=== PATIENT | male | born 1970 | race Caucasian/White ===

== ENCOUNTER → 2021-01-30 14:49 | Outpatient (BNVA) | payer OTHER, SELFPAY | PROVIDERS: PCP Hospitalist; Visit Provider Physician Assistant | DX: S01.01XA Laceration without foreign body of scalp, initial encounter (principal); W22.09XA Striking against other stationary object, initial encounter | CPT/HCPCS: 12004; 99204 ==

== ENCOUNTER → 2021-01-31 12:49 | Outpatient (BNVA) | payer OTHER, SELFPAY | PROVIDERS: PCP Hospitalist; Visit Provider Physician Assistant | DX: S01.01XA Laceration without foreign body of scalp, initial encounter (principal); X58.XXXA Exposure to other specified factors, initial encounter | CPT/HCPCS: 99213 ==

== ENCOUNTER → 2021-02-02 12:23 | Outpatient (BNVA) | payer OTHER, SELFPAY | PROVIDERS: PCP Hospitalist; Visit Provider Internal Medicine | DX: S01.01XA Laceration without foreign body of scalp, initial encounter (principal); X58.XXXA Exposure to other specified factors, initial encounter | CPT/HCPCS: 99213 ==

== ENCOUNTER → 2021-02-08 15:04 | Outpatient (BNVA) | payer OTHER, SELFPAY | PROVIDERS: PCP Hospitalist; Visit Provider Internal Medicine | DX: S01.01XA Laceration without foreign body of scalp, initial encounter (principal); X58.XXXA Exposure to other specified factors, initial encounter | CPT/HCPCS: 99212; 99213 ==

== ENCOUNTER → 2021-02-16 14:47 | Outpatient (BNVA) | payer OTHER, SELFPAY | PROVIDERS: PCP Hospitalist; Visit Provider Internal Medicine | DX: S01.01XA Laceration without foreign body of scalp, initial encounter (principal); X58.XXXA Exposure to other specified factors, initial encounter | CPT/HCPCS: 99213 ==

== ENCOUNTER 2025-08-03 16:09 | Inpatient (IN) | payer BC, SELFPAY ==
--- NOTE | ~2025-08-03 | XR_ITS ---
EXAMINATION: XR FOOT, RIGHT CLINICAL INFORMATION: right foot wound. osteo? COMPARISON: 04/25/2019. TECHNIQUE: AP, lateral, and oblique views of the right foot. FINDINGS: There is no fracture, dislocation, or suspicious bone lesion. There is normal alignment. There is mild hallux valgus with mild bunion formation involving the medial eminence of the first metatarsal head. There are hammertoe deformities present. There is a mild pes planus. There are tiny plantar and dorsal calcaneal spurs. There is no regional focal osteopenia, or permeative bony change to suggest radiographic changes of osteomyelitis. There is diffuse soft tissue swelling of the dorsal forefoot and midfoot, extending into the ankle region. There is no subcutaneous gas identified. There is no radiopaque foreign body. XR/XR foot RT 2V IMPRESSION: 1. Diffuse soft tissue swelling of the dorsal midfoot and forefoot, without subcutaneous gas identified. 2. There is no radiographic evidence of osteomyelitis. 3. There is mild hallux valgus and mild bunion formation involving the first metatarsal head. Electronically signed by: Alberto Mancilla MD 08/03/2025 04:52 PM EST
--- NOTE | ~2025-08-03 | CT_ITS ---
CLINICAL HISTORY: RT FOOT ULCER CT right foot with intravenous contrast Comparison: CR/SR - XR FOOT 1-2 VIEWS RIGHT - 08/03/25 16:41 EST Findings: Diffuse subcutaneous edema over the forefoot. Loculated subcutaneous abscess measuring 4.0 x 1.4 x 1.0 cm located above and between the 1st and 2nd metatarsal shafts. No soft tissue gas. No joint effusions. No evidence of osteomyelitis. No acute fracture or dislocation. IMPRESSION: 1. Loculated subcutaneous abscess measuring 4.0 x 1.4 x 1.0 cm between the 1st and 2nd metatarsal shafts with associated diffuse subcutaneous edema over the forefoot. 2. No evidence of osteomyelitis or soft tissue gas. This document has been electronically signed by: Zoya Rodas MD on 08/03/2025 22:08:27
[2025-08-03 16:21] VITALS: BP 161/76; PULSE 80; RESP 18; TEMP 36.8; O2SAT 98; BMI 29.3
--- NOTE | 2025-08-03 16:25 | ED_ITS ---
HPI - General Adult General Chief complaint: General Medical Stated complaint: Inflammation R foot Time Seen by Provider: 08/03/25 18:17 History of Present Illness ED Provider: danica HPI narrative: 55 M nelda foot infection x 1 week worsening Saw Derm 3 mo ago for bilateral dorsal foot rash and axilla rash was told that he needed to provide more aeration changes laundry detergent so perhaps they thought it was some inflammatory condition or dermatitis. The patient was not prescribed any medications he has been itching the area and in the right foot started getting red about a week ago worsening with some drainage developing. Denies subjective fever. Related Data Home Medications ?Medication ?Instructions ?Recorded ?Confirmed multivitamin 1 tab PO DAILY 08/03/2502/20 Allergies Allergy/AdvReac Type Severity Reaction Status Date / Time amoxicillin (AMOXICILLIN) Allergy Mild RASH Verified 08/03/25 16:24 [facility] Social History Social History Household Members: None Housing: Apartment Do you presently have visiting nurse or other home services: No Alcohol intake: current Alcohol intake frequency: a few times a week Patient Tobacco Use Status: Never used Tobacco Smoked in Last 30 Days: No Use of substances other than those prescribed or required for medical reasons: No Currently Displaying Signs/Symptoms of Drug Intoxication Withdrawal: No Have you been hit, kicked, punched, or otherwise hurt by someone within the past year? If so, by whom?: No Do you feel safe in your current relationship?: No Current Relationship Is there a partner from a previous relationship who is making you feel unsafe now?: No Are you made to feel afraid or neglected: No Advance Directives: No Advance Directives Information Provided: No Do you have a plan to hurt others: No Plan Recently lost weight without trying: No How much weight loss: Not applicable Eating poorly because of decreased appetite: No Nutrition screen score: 0 Nutrition Risks: No Nutritional Risk Poor oral hygiene: No Physical Exam ED Exam Exam: EXAM: Gen: Alert, awake, well appearing, well hydrated. Head: Atraumatic Eyes: Anicteric, Normal conjunctiva. ENT: Moist mucosa, no pallor. ? Neck: Supple. Skin: Scaling of the left foot dorsum looks like it is a healing inflammatory or dermatitis Right lower extremity significant swelling erythema tenderness centrally necrotic appearing ulceration or abscess in the dorsum of the foot. No obvious fluctuance. There is diffuse warmth and erythema spreading up including the ankle and about to the mid pretibial region no calf tenderness. Well-perfused distal feed Respiratory: Breathing comfortably, No distress.Clear to auscultation bilaterally, symmetric chest expansion, No wheeze, rales, ronchi. Cardiovascular: Regular rate and rhythm. No murmurs or rub. Well perfused periphery, warm extremities. No edema. ? Abdominal: No focal tenderness. Soft, no objective distension. No palpable masses or obvious organomegaly. ?No guarding, no rebound tenderness or other peritoneal findings. : No flank tenderness. Neuro: Alert. Gross movement of all extremities intact. ? Psych: Calm. Cooperative. MSK: No grossly visible deformity. Vital signs: See flowsheet Vital Signs: Vital Signs - 24 hr 08/03/25 16:21 08/03/25 19:20 08/03/25 19:25 Temperature 98.2 F 99.3 F 99.1 F Pulse Rate 80 75 66 Respiratory Rate 18 16 16 Blood Pressure 161/76 H 137/84 137/84 Pulse Oximetry 98 95 97 Oxygen Delivery Method Room Air Room Air Room Air BMI result Body Mass Index 29.3 Course Course Course Narrative: RME: 55 yold male presents to the ED For right foot redness and open draining wound with redness. labs an dxray ordered Medications Administered Generic Name Dose Route Start Last Admin Trade Name Freq PRN Reason Stop Dose Admin Benzocaine 1 lozenge 08/04/25 00:17 08/04/25 00:24 Throat Lozenge, Medicated Lozenge MUCOUS MEM 1 lozenge Q2H PRN Administration Sore Throat Enoxaparin Sodium 40 mg 08/03/25 21:00 08/03/25 21:35 Enoxaparin Sodium 40 Mg/0.4 Ml Syringe SUBCUT Not Given Q24H EDGAR Melatonin 6 mg 08/03/25 20:38 08/04/25 00:24 Melatonin 3 Mg Tablet PO 6 mg BEDTIME PRN Administration Insomnia Sodium Chloride 3 ml 08/04/25 00:00 08/03/25 23:03 0.9 % Sodium Chloride Flush 3 Ml Syringe IVFLUSH Not Given QSHIFT EDGAR Discontinued Medications Generic Name Dose Route Start Last Admin Trade Name Freq PRN Reason Stop Dose Admin Doxycycline Monohydrate 100 mg 08/03/25 19:21 08/03/25 21:35 Doxycycline Monohydrate 100 Mg Capsule PO 08/03/25 19:22 100 mg ONCE ONE Administration Ceftriaxone Sodium 2 gm/ 50 mls @ 100 mls/hr 08/03/25 19:21 08/03/25 20:02 Sodium Chloride IV 08/03/25 19:50 Infused ONCE ONE Infusion Vancomycin HCl 2,000 mg in 500 mls @ 250 mls/hr 08/03/25 21:15 08/04/25 00:21 Vancomycin/Ns IV 08/03/25 23:14 Infused ONCE ONE Infusion Iohexol 100 ml 08/03/25 21:04 08/03/25 21:08 Iohexol 350 Mg/Ml 100 Ml Infus..Btl IV 08/03/25 21:05 85 ml ONCE ONE Administration Medical Decision Making Medical Decision Making MDM Narrative: Medical Decision Making: [age] male with right dorsal foot infection clearly cellulitic could be deeper space abscess. No gas on x-ray. No leukocytosis but his inflammatory markers are elevated. 99.3 oral temperature. No hemodynamic instability. Blood cultures drawn at triage patient does not meet SIRS/sepsis criteria. He is healthy denies any immunocompromise/diabetes Although the patient does not meet sepsis criteria I feel like this is skin infection that is not going to be likely to respond well to oral antibiotics. Foot shows what is likely ulceration with a small area of dark possibly necrotic skin. There was some expressible drainage but no fluctuance deep. Covered with antibiotics and admit to the hospital given the risk of failure of outpatient antibiotics severity of the appearance of the infection. May need foot MR to evaluate for deep space foot infection not available emergently in the ED. Preliminary Favored Differential Diagnosis: Foot cellulitis, skin ulceration, deep space foot infection, lymphangitis among additional considered etiologies Testing Interpreted Independently: ?See below for details Radiology or Lab testing Results Reviewed: ?See below for details Consults: ?See below for details Independent Historians/External Chart Reviews: ?See below for details Social Determinants of Health Impacting MDM/Planning: ?See below for details Consult Healthcare Provider Management of the patient was discussed with: Hospitalist Lab Data MDM Lab Attestation statement: I reviewed the patient's lab results. 08/03/25 18:20 08/03/25 18:20 Labs: Lab Results 08/03/25 08/03/25 Range/Units 18:19 18:20 WBC 10.6 (4.8-10.8) X10*3/uL RBC 4.76 (4.60-5.80) X10*6/uL Hgb 15.1 (14.0-18.0) g/dl Hct 44.0 (42.0-52.0) % MCV 92.4 (80.0-98.0) fL MCH 31.7 (27.0-33.0) pg MCHC 34.3 (31.0-36.0) g/dl RDW 12.3 (11.0-16.0) % Plt Count 262 (160-400) X10*3/uL MPV 8.8 L (9.4-12.4) fL Immature Gran % (Auto) 0.4 (0.0-0.4) % Neut % (Auto) 74.1 H (45-73) % Lymph % (Auto) 12.7 L (20-40) % Love % (Auto) 10.4 (2-11) % Eos % (Auto) 2.0 (0-4) % Baso % (Auto) 0.4 (0-2) % Lymph # (Auto) 1.3 (1.2-4.9) X10*3/uL Love # (Auto) 1.1 (0.1-1.2) X10*3/uL Eos # (Auto) 0.2 (0.0-0.4) X10*3/uL Baso # (Auto) 0.0 (0.0-0.2) X10*3/uL Abs Immat Gran (auto) 0.04 H (0.00-0.03) X10*3/uL Absolute Neuts (auto) 7.9 (2.0-8.3) x10*3/uL Absolute Nucleated RBC 0.000 (0.0-0.012) X10*3/uL Nucleated RBC % (auto) 0.0 (0.0-0.2) /100WBC ESR 23 H (0-15) MM/HR Sodium 141 (135-145) mmol/L Potassium 4.0 (3.3-5.1) mmol/L Chloride 102 (96-108) mmol/L Carbon Dioxide 29 (22-29) mmol/L Anion Gap 14 (12-20) BUN 16 (9-16) mg/dL Creatinine 0.88 (0.5-1.4) mg/dL Estim Creat Clear Calc 111.7 Estimated GFR > 60 Random Glucose 102 (60-115) mg/dL Lactic Acid 0.7 (0.5-2.0) mmol/L Calcium 9.3 (8.4-10.2) mg/dL Total Bilirubin 0.8 (0.0-1.0) mg/dL AST 23 (5-37) U/L ALT 31 (0-40) U/L Alkaline Phosphatase 79 (39-117) U/L C-Reactive Protein 10.77 H (< or = 0.50) mg/dL Total Protein 7.7 (6.5-8.0) g/dL Albumin 4.7 (3.5-5.0) g/dL Discharge Plan Discharge Clinical Impression: Cellulitis Qualifiers: Site of cellulitis: extremity Site of cellulitis of extremity: lower extremity Laterality: right Qualified Code(s): L03.115 - Cellulitis of right lower limb Patient Disposition: Admitted As Inpatient Interventions: Admission Worksheet (ED) Last Done: 08/03/25 23:22 Discharge Date/Time: 08/03/25 23:57
[2025-08-03 18:27] LABS: MANUAL DIFF FLAG NO
[2025-08-03 18:37] LABS: Hematocrit 44.0 % (42.0-52.0); Hemoglobin 15.1 g/dl (14.0-18.0); Imm Gran Abs Auto 0.04 X10*3/uL (0.00-0.03); Imm Gran Pct Auto 0.4 % (0.0-0.4); Lymphocytes Absolute Auto 1.3 X10*3/uL (1.2-4.9); Mean Corpuscular HGB Conc 34.3 g/dl (31.0-36.0); Mean Corpuscular Hemoglobin 31.7 pg (27.0-33.0); Mean Corpuscular Volume 92.4 fL (80.0-98.0); NRBC Abs Auto 0.000 X10*3/uL (0.0-0.012); NRBC Pct Auto 0.0 /100WBC (0.0-0.2); Platelet Count 262 X10*3/uL (160-400); Red Blood Count 4.76 X10*6/uL (4.60-5.80); White Blood Count 10.6 X10*3/uL (4.8-10.8)
[2025-08-03 18:44] LABS: Alanine Aminotransferase 31 U/L (0-40); Albumin Level 4.7 g/dL (3.5-5.0); Alkaline Phosphatase 79 U/L (39-117); Anion Gap 14 (12-20); Aspartate Amino Transferase 23 U/L (5-37); Blood Urea Nitrogen 16 mg/dL (9-16); Calcium 9.3 mg/dL (8.4-10.2); Carbon Dioxide 29 mmol/L (22-29); Chloride 102 mmol/L (96-108); Creatinine Clr Calc Pharmacy 111.7; Estimated Glomerular Filt Rate > 60; Potassium 4.0 mmol/L (3.3-5.1); Sodium 141 mmol/L (135-145); Total Protein 7.7 g/dL (6.5-8.0)
--- OUTSIDE RECORDS SUMMARY | 2025-08-03 19:15 | XMS_ITS | Patient Health Record ---
Author Organization [facility] Address [address] [place] [address] Care Team Providers Care Monitoring Manager Name Role Phone Kiley Hernández Primary Care Provider Albert Mireles Unavailable [phone] Allergies Allergen (clinical drug ingredient) Drug/Non Drug Allergy documented on EMR Reaction Allergy Type Onset Date Status aspirin Aspirin nausea Drug Allergy Active amoxicillin Amoxicillin rash Drug Allergy Act phuong Penicillin rash Drug Allergy Active Reason For Referral No Information Immunizations Vaccine Route Administration Date Status Comme nts COVID-19 Moderna Vaccine Unknown 09/29/2021 Administered unsure dates Social History Tobacco Use: Social History Observation Description Date Details (start date - stop date) Never Smoker NA - NA Tobacco Use/Smoking Question Answer Notes Are you a: nonsmoker Additional Findings: Tobacco Non-User Current no n-smoker Alcohol Screen Question Answer Notes Did you have a drink contain ing alcohol in the past year? Yes How often did you have a dri nk containing alcohol in the past year? 2 to 3 times a week (3 points) Points 3 Interpretation Negative Tobacco use other than smoking: Question Answer Notes Are you an other tobacco user? No Plan Of Treatment Pending Test Test Name Order Date X ray : Foot, right 3V 10/25/2022 Insurance Providers Payer Name Payer Address Payer Phone Subscriber Number Group Number Insured Name Patient Relationship to Insured Coverage Start Date Coverage End Date [facility] All Others [address] [place] [address] [phone] [id number] Steven Pham Self - patient is the insured Medical (General) History Medical History History ICD Code Chicken pox Bone implants/screws Surgical History Surgery Date(Month/Year) surgery right knee - ACL repair 2019 colonoscopy 2021
--- OUTSIDE RECORDS SUMMARY | 2025-08-03 19:16 | XMS_ITS | Patient Health Record ---
Author Organization [facility] Address [address] [place] [address] Care Team Providers Care Public Relations Professional Name Role Phone Michael Joaquin Primary Care Provider Unavailabl e Allergies Allergen (clinical drug ingredient) Drug/Non Drug Allergy documented on EMR Reaction Allergy Type Onset Date Status Amoxil rash Drug Allergy Active aspirin Aspirin vomitting Drug Allergy Active Reason For Referral No Information Problems Problem Type SNOMED Code ICD Code Onset Dates Problem Status W/U Status Risk Notes Problem Cavus deformity (8843859) Cavus deformity (Q66.70) Active confirmed Plan Of Treatment No Information Insurance Providers Payer Name Payer Address Payer Phone Subscriber Number Group Number Insured Name Patient Relationship to Insured Coverage Start Date Coverage End Date [facility] [address] [place] [phone] [id number] Steven Pham Self - patient is the insured Medical (General) History Medical History History ICD Code Overweight (BMI 25.0-29.9) Surgical History Surgery Date(Month/Year) Right meniscus surgery
[2025-08-03 19:20] VITALS: BP 137/84; PULSE 75; RESP 16; TEMP 37.4; O2SAT 95
[2025-08-03 19:25] VITALS: BP 137/84; PULSE 66; RESP 16; TEMP 37.3; O2SAT 97
--- NOTE | 2025-08-03 20:40 | PM.IMHP ---
History of Present Illness Date of Service: 08/03/25 Chief Complaint: Foot infection 55-year-old male with significant past medical history presented to the hospital with a chief complaint of right foot infection for about a week. Patient mentioned that he has been having redness and erythema on the right foot which has been gradually worsening. Noted to have dark granulation tissue. And seen the physician as outpatient and was started on doxycycline which he took it for 1 day but as the redness has been progressing, presented to the ER for further evaluation. Patient denies any fevers or chills. Denies any nausea vomiting or diarrhea. Denies any insect bites. Review of all other systems is negative except mentioned above ER course: Per ER team, patient noted to have right foot open ulcer with dark granulation tissue and surrounding erythema. X-ray showed evidence of gas. Given antibiotics. PMFSH Social History Alcohol intake: current Alcohol intake frequency: a few times a week Smoked in Last 30 Days: No Use of substances other than those prescribed or required for medical reasons: No Advance Directives: No Advance Directives Information Provided: No Do you have a plan to hurt others: No Plan Meds Allergies Allergy/AdvReac Type Severity Reaction Status Date / Time amoxicillin (AMOXICILLIN) Allergy Mild RASH Verified 08/03/25 16:24 Active Medications: Current Medications Vancomycin HCl 1,000 mg/ (Sodium Chloride) 270 mls @ 270 mls/hr IV ONCE ONE Stop: 08/03/25 21:36 Ceftriaxone Sodium 1 gm/ (Sodium Chloride) 50 mls @ 100 mls/hr IV Q24H [facility] Pharmacy Consult (Consult Rx Vancomycin Dosing) 1 each MISCELLANE DAILY PRN PRN Reason: Consult order Physical Exam Vital Signs and Narrative: Vital Signs: Last Vital Signs Temp 99.1 F 08/03/25 19:25 Pulse 66 08/03/25 19:25 Resp 16 08/03/25 19:25 BP 137/84 08/03/25 19:25 Pulse Ox 97 08/03/25 19:25 O2 Del Method Room Air 08/03/25 19:25 BMI result Body Mass Index 29.3 Gen: Appears be in no acute distress HEENT: NCAT, Moist mucosa. Pulmonary: Vesicular breath sounds, fair air entry CVS: Normal S1-S2 Abdomen: BS+, Soft, Nontender Extremities: Warm well perfused Neuro: Alert and awake. Skin: Right foot dorsum is erythematous with central ulcer, has dark granulation tissue, no drainage. Results Labs 08/03/25 18:20 08/03/25 18:20 Labs: Laboratory Results - last 24 hr 08/03/25 08/03/25 18:19 18:20 MCV 92.4 MCH 31.7 MCHC 34.3 RDW 12.3 Plt Count 262 MPV 8.8 L Immature Gran % (Auto) 0.4 Neut % (Auto) 74.1 H Lymph % (Auto) 12.7 L [place] % (Auto) 10.4 Eos % (Auto) 2.0 Baso % (Auto) 0.4 Lymph # (Auto) 1.3 [place] # (Auto) 1.1 Eos # (Auto) 0.2 Baso # (Auto) 0.0 Abs Immat Gran (auto) 0.04 H Absolute Neuts (auto) 7.9 Absolute Nucleated RBC 0.000 Nucleated RBC % (auto) 0.0 ESR 23 H Anion Gap 14 Estim Creat Clear Calc 111.7 Estimated GFR > 60 Random Glucose 102 Lactic Acid 0.7 Calcium 9.3 Total Bilirubin 0.8 AST 23 ALT 31 Alkaline Phosphatase 79 C-Reactive Protein 10.77 H Total Protein 7.7 Albumin 4.7 Imaging Radiologist's Impressions: Impressions Foot X-Ray 08/03/25 16:25 IMPRESSION: 1. Diffuse soft tissue swelling of the dorsal midfoot and forefoot, without subcutaneous gas identified. 2. There is no radiographic evidence of osteomyelitis. 3. There is mild hallux valgus and mild bunion formation involving the first metatarsal head. Electronically signed by: Alberto Mancilla MD 08/03/2025 04:52 PM [facility] Assessment and Plan (1) Cellulitis: Qualifiers: Site of cellulitis: extremity Site of cellulitis of extremity: lower extremity Laterality: right Qualified Code(s): L03.115 - Cellulitis of right lower limb Status: Acute Plan 55-year-old male with significant past medical history presented to the hospital with a chief complaint of right foot infection for about a week. Noted to have right foot dorsum cellulitis. Right foot cellulitis: Continue vancomycin and ceftriaxone ID consult Will obtain CT of the foot DVT prophylaxis: Lovenox Code status: Full code Quality Stroke Does the patient have a stroke diagnosis?: No VTE Prior VTE?: No VTE Risk Level:: Medical - moderate - high VTE Device Contraindication: Treatment Not Indicated VTE Drug Contraindication: N/A - Med Ordered
[2025-08-03] MEDS: iohexoL 350 MG/ML 100 ML INFUS..BTL IV (21:08)
[2025-08-03] MEDS: vancomycin/NS 2,000 MG/500 ML PLAST..BAG 250 MG IV (21:34)
--- NOTE | 2025-08-03 21:50 | PHA.MEDREC ---
Addendum entered by Ermias Aden, PharmAshley 08/03/25 21:55: MED REC CHECKED BY [facility] Original Note: Pharmacy Consult ? Medication Reconciliation Pharmacy has completed the medication reconciliation. patient states he only takes Multivitamin daily.
[2025-08-03 23:58] VITALS: BMI 28.3
[2025-08-04 00:17] VITALS: BP 136/81; PULSE 67; RESP 18; TEMP 36.5; O2SAT 97
[2025-08-04] MEDS: Throat Lozenge, Medicated LOZENGE 1 LOZENGE MUCOUS MEM (00:24)
--- NOTE | 2025-08-04 00:41 | PC.NURSE ---
Per pt's request - pt's wallet is locked in security in ED, please return when discharged.
[2025-08-04 03:57] VITALS: BP 128/75; PULSE 65; RESP 18; TEMP 36.8; O2SAT 94
[2025-08-04 06:17] LABS: MANUAL DIFF FLAG NO
[2025-08-04 06:36] LABS: Anion Gap 12 (12-20); Blood Urea Nitrogen 14 mg/dL (9-16); Calcium 8.6 mg/dL (8.4-10.2); Carbon Dioxide 26 mmol/L (22-29); Chloride 106 mmol/L (96-108); Creatinine Clr Calc Pharmacy 115.3; Estimated Glomerular Filt Rate > 60; Potassium 4.1 mmol/L (3.3-5.1); Sodium 140 mmol/L (135-145)
[2025-08-04 06:42] LABS: Hematocrit 41.7 % (42.0-52.0); Hemoglobin 14.0 g/dl (14.0-18.0); Imm Gran Abs Auto 0.06 X10*3/uL (0.00-0.03); Imm Gran Pct Auto 0.8 % (0.0-0.4); Lymphocytes Absolute Auto 1.0 X10*3/uL (1.2-4.9); Mean Corpuscular HGB Conc 33.6 g/dl (31.0-36.0); Mean Corpuscular Hemoglobin 31.2 pg (27.0-33.0); Mean Corpuscular Volume 92.9 fL (80.0-98.0); NRBC Abs Auto 0.000 X10*3/uL (0.0-0.012); NRBC Pct Auto 0.0 /100WBC (0.0-0.2); Platelet Count 243 X10*3/uL (160-400); Red Blood Count 4.49 X10*6/uL (4.60-5.80); White Blood Count 7.1 X10*3/uL (4.8-10.8)
[2025-08-04 07:40] VITALS: BP 129/83; PULSE 66; RESP 18; TEMP 36.8; O2SAT 94
--- NOTE | 2025-08-04 08:41 | PM.CNGS ---
History of Present Illness Consult details Consult date: 08/04/25 Narrative: 55M here in the ER for redness of the right foot. He says that he had a rash about a month ago the foot and was started on steroids. He had been scratching the area and last week, he noted skin breakdown and worsening redness. He therefore came to the emergency room yesterday. He denies any fever or chills. He denies being a diabetic. Review of Systems Constitutional: Constitutional: Denies chills and Denies fever(s) Cardiovascular: Cardiovascular: Denies chest pain, Denies dyspnea and Denies dyspnea on exertion Respiratory: Respiratory: Denies cough, Denies dyspnea and Denies dyspnea on exertion Gastrointestinal: Gastrointestinal: Denies hematochezia and Denies change in bowel habits Genitourinary: Genitourinary: Denies hematuria and Denies difficulty urinating Musculoskeletal: Musculoskeletal: Denies back pain and Denies limited range of motion Neurologic: Denies focal weakness and Denies convulsions Psychiatric: Psychiatric: Denies depression and Denies mood swings [facility] Social History Social History Household Members: None Housing: Apartment Do you presently have visiting nurse or other home services: No Alcohol intake: current Alcohol intake frequency: a few times a week Patient Tobacco Use Status: Never used Tobacco service: No Meds Allergies Allergy/AdvReac Type Severity Reaction Status Date / Time amoxicillin (AMOXICILLIN) Allergy Mild RASH Verified 08/03/25 16:24 Active Medications: Current Medications Acetaminophen (Acetaminophen 325 Mg Tablet) 650 mg PO Q6H PRN PRN Reason: Pain, Mild 1-3,fever,headache Benzocaine (Throat Lozenge, Medicated Lozenge) 1 lozenge MUCOUS MEM Q2H PRN PRN Reason: Sore Throat Last Admin: 08/04/25 00:24 Dose: 1 lozenge Calcium Carbonate (Calcium Carbonate 750 Mg Tab.Chew) 750 mg PO Q4H PRN PRN Reason: Heartburn Enoxaparin Sodium (Enoxaparin Sodium 40 Mg/0.4 Ml Syringe) 40 mg SUBCUT Q24H EDGAR Last Admin: 08/03/25 21:35 Dose: Not Given Vancomycin HCl 1,000 mg/ (Sodium Chloride) 270 mls @ 270 mls/hr IV Q12H EDGAR Ceftriaxone Sodium 1 gm/ (Sodium Chloride) 50 mls @ 100 mls/hr IV Q24H [facility] Magnesium Hydroxide (Milk Of Magnesia 30 Ml Oral.Susp) 30 ml PO DAILY PRN PRN Reason: Constipation Melatonin (Melatonin 3 Mg Tablet) 6 mg PO BEDTIME PRN PRN Reason: Insomnia Last Admin: 08/04/25 00:24 Dose: 6 mg Multivitamins/Vitamin C (Multivitamin Tablet) 1 tab PO DAILY [facility] Pharmacy Consult (Consult Rx Vancomycin Dosing) 1 each MISCELLANE DAILY PRN PRN Reason: Consult order Sodium Chloride (0.9 % Sodium Chloride Flush 3 Ml Syringe) 3 ml IVFLUSH QSHIFT [facility] Last Admin: 08/03/25 23:03 Dose: Not Given Home Medications ?Medication ?Instructions ?Recorded ?Confirmed ?Last Taken ?Type multivitamin 1 tab PO DAILY 08/03/25 08/03/25 08/03/25 History Physical Exam Vital Signs: Vital Signs: Last Vital Signs Temp 98.2 F 08/04/25 07:40 Pulse 66 08/04/25 07:40 Resp 18 08/04/25 07:40 BP 129/83 08/04/25 07:40 Pulse Ox 94 08/04/25 07:40 O2 Del Method Room Air 08/04/25 07:40 BMI result Body Mass Index 28.3 Const: General: comfortable and no acute distress Orientation/consciousness: patient oriented x3 Neck: Neck: Yes no lymphadenopathy Resp: Auscultation: clear to auscultation bilaterally Cardio: Rhythm: regular rhythm GI: Palpation (GI): Soft to palpation, nontender and no guarding Neuro: General: patient oriented x3 Extrem: Other: Redness of the dorsum of the right foot with superficial eschar Results Labs 08/05/25 05:33 08/05/25 05:33 Labs: Abnormal lab results 08/03/25 08/04/25 Range/Units 18:20 05:49 RBC 4.49 L (4.60-5.80) X10*6/uL Hct 41.7 L (42.0-52.0) % MPV 8.8 L 8.8 L (9.4-12.4) fL Immature Gran % (Auto) 0.8 H (0.0-0.4) % Neut % (Auto) 74.1 H (45-73) % Lymph % (Auto) 12.7 L 14.1 L (20-40) % [place] % (Auto) 12.5 H (2-11) % Eos % (Auto) 4.8 H (0-4) % Lymph # (Auto) 1.0 L (1.2-4.9) X10*3/uL Abs Immat Gran (auto) 0.04 H 0.06 H (0.00-0.03) X10*3/uL ESR 23 H (0-15) MM/HR C-Reactive Protein 10.77 H (< or = 0.50) mg/dL Short CBC 08/03/25 08/04/25 Range/Units 18:20 05:49 WBC 10.6 7.1 (4.8-10.8) X10*3/uL Hgb 15.1 14.0 (14.0-18.0) g/dl Hct 44.0 41.7 L (42.0-52.0) % Plt Count 262 243 (160-400) X10*3/uL BMP 08/03/25 08/04/25 18:20 05:49 Sodium 141 140 Potassium 4.0 4.1 Chloride 102 106 Carbon Dioxide 29 26 BUN 16 14 Creatinine 0.88 0.84 Calcium 9.3 8.6 D Liver Function 08/03/25 Range/Units 18:20 Total Bilirubin 0.8 (0.0-1.0) mg/dL AST 23 (5-37) U/L ALT 31 (0-40) U/L Alkaline Phosphatase 79 (39-117) U/L Albumin 4.7 (3.5-5.0) g/dL All other labs normal. Assessment and Plan (1) Cellulitis: Qualifiers: Laterality: right Site of cellulitis: extremity Site of cellulitis of extremity: lower extremity Qualified Code(s): L03.115 - Cellulitis of right lower limb Status: Acute He has cellulitis of the right foot. There is a superficial overlying eschar. We bluntly debrided this with nikolai and cleaned the area. Cultures were taken as well. I have instructed him to elevate the leg as much as possible as there is edema as well. He is already on antibiotics. We will follow along while he is in the hospital. Procedures Date of Service Date of Service: 08/05/25
[2025-08-04 09:13] LABS: Creatinine Clr Calc Pharmacy 107.6; Estimated Glomerular Filt Rate > 60
--- NOTE | 2025-08-04 09:27 | HO.WOUND ---
Wound Consult: Initial 55 yr old male admitted to [facility] on 08/03/25- See progress notes and H&P for detailed history. Wound consult placed for right foot. Patient agreeable to assessment and photo documentation. patient with recent history of rash to axilla and bilateral dorsal feet- saw dermatology who prescribed oral and topical steroids, recommended laundry detergent and soap change with clothing that promotes airflow. Patient reports overall improvement of rash but reports feet were itchy and right foot developed cellulitis. Seen with SARAH Payne with general surgery today for debridement. Right dorsal foot pre-debridement Right dorsal post debridement Etiology: abscess Measurements: 0.5cm x 0.5cm x 0.5cm - undermining 12-12, 0.5cm Wound Bed: moist red Drainage / Odor: moderate purulent drainage expressed by PA Edges: ? open Lucía wound: ? No Induration, mild Fluctuance and Warmth noted- surrounding redness and edema Pain: noted with dressing Goals of Treatment: ? plain 1/4 in packing to wick drainage - Left dorsal - rash - pt reports improved but remains with mild itch Recommendations: Right foot: packing in place to be removed/replaced by surgery- may change gauze/roll as needed for strikethrough drainage. Re-consult wound care Nurse for wound deterioration or wound changes.
--- NOTE | 2025-08-04 09:28 | PM.EVENT ---
Event Note Date of Service: 08/04/25 Event Note: Right foot dorsal aspect of forefoot, 1.5cm eschar noted with underlying fluctuance. Sharp excisional debridement of the eschar (partial thickness, skin) was peformed with scissors and small open to cavity was revealed with purulent drainage. Fluid was cultured and sent. This area was spread with a young clamp and probed and moderate of purulent drainage encountered. The entire area was massaged until no further fluctuance palpated. Area packed with 1/4in packing followed by fluffs and kerlix wrap. Patient tolerated well. Time Spent With Patient Time: Total time managing care of this patient today ____ minutes.
[2025-08-04] MEDS: 0.9 % Sodium Chloride Flush 3 ML SYRINGE IVFLUSH ×2 (09:41→16:08)
--- NOTE | 2025-08-04 10:56 | P.PNIM_ITS ---
Subjective Subjective Date of Service: 08/04/25 Interval History: foot pain Physical Exam 2 Vital Signs: Vital Signs: Last Vital Signs Temp 98.2 F 08/04/25 07:40 Pulse 66 08/04/25 07:40 Resp 18 08/04/25 07:40 BP 129/83 08/04/25 07:40 Pulse Ox 94 08/04/25 07:40 O2 Del Method Room Air 08/04/25 07:40 BMI result Body Mass Index 28.3 Const: General: comfortable and no acute distress O rientation/consciousness: patient oriented x3 Neck: Neck: Yes no lymphadenopathy Resp: Auscultation: clear to auscultation bilaterally Cardio: Rhythm: regular rhythm GI: Palpation (GI): Soft to palpation, nontender and no guarding Neuro: General: patient oriented x3 Extrem: Other: Redness of the dorsum of the right foot with superficial eschar Objective Data Active Medications Acetaminophen (Acetaminophen 325 Mg Tablet) 650 mg PO Q6H PRN PRN Reason: Pain, Mild 1-3,fever,headache Benzocaine (Throat Lozenge, Medicated Lozenge) 1 lozenge MUCOUS MEM Q2H PRN PRN Reason: Sore Throat Last Admin: 08/04/25 00:24 Dose: 1 lozenge Documented By: STEPHEN Calcium Carbonate (Calcium Carbonate 750 Mg Tab.Chew) 750 mg PO Q4H PRN PRN Reason: Heartburn Enoxaparin Sodium (Enoxaparin Sodium 40 Mg/0.4 Ml Syringe) 40 mg SUBCUT Q24H [facility] Last Admin: 08/03/25 21:35 Dose: Not Given Documented By: SONIA Non-Admin Reason: Patient Refused Vancomycin HCl 1,000 mg/ (Sodium Chloride) 270 mls @ 270 mls/hr IV Q12H [facility] Last Admin: 08/04/25 09:41 Dose: 270 mls/hr Documented By: CUCO Ceftriaxone Sodium 1 gm/ (Sodium Chloride) 50 mls @ 100 mls/hr IV Q24H [facility] Magnesium Hydroxide (Milk Of Magnesia 30 Ml Oral.Susp) 30 ml PO DAILY PRN PRN Reason: Constipation Melatonin (Melatonin 3 Mg Tablet) 6 mg PO BEDTIME PRN PRN Reason: Insomnia Last Admin: 08/04/25 00:24 Dose: 6 mg Documented By: STEPHEN Multivitamins/Vitamin C (Multivitamin Tablet) 1 tab PO DAILY [facility] Last Admin: 08/04/25 09:41 Dose: 1 tab Documented By: CUCO Pharmacy Consult (Consult Rx Vancomycin Dosing) 1 each MISCELLANE DAILY PRN PRN Reason: Consult order Sodium Chloride (0.9 % Sodium Chloride Flush 3 Ml Syringe) 3 ml IVFLUSH QSHIFT [facility] Last Admin: 08/04/25 09:41 Dose: 3 ml Documented By: CUCO Labs 08/04/25 05:49 08/04/25 08:05 Labs: Laboratory Results - last 24 hr 08/03/25 08/03/25 08/04/25 18:19 18:20 05:49 MCV 92.4 92.9 MCH 31.7 31.2 MCHC 34.3 33.6 RDW 12.3 12.2 Plt Count 262 243 MPV 8.8 L 8.8 L Immature Gran % (Auto) 0.4 0.8 H Neut % (Auto) 74.1 H 67.0 Lymph % (Auto) 12.7 L 14.1 L [place] % (Auto) 10.4 12.5 H Eos % (Auto) 2.0 4.8 H Baso % (Auto) 0.4 0.8 Lymph # (Auto) 1.3 1.0 L [place] # (Auto) 1.1 0.9 Eos # (Auto) 0.2 0.3 Baso # (Auto) 0.0 0.1 Abs Immat Gran (auto) 0.04 H 0.06 H Absolute Neuts (auto) 7.9 4.8 Absolute Nucleated RBC 0.000 0.000 Nucleated RBC % (auto) 0.0 0.0 ESR 23 H Anion Gap 14 12 Estim Creat Clear Calc 111.7 115.3 Estimated GFR > 60 > 60 Random Glucose 102 107 Lactic Acid 0.7 Calcium 9.3 8.6 D Total Bilirubin 0.8 AST 23 ALT 31 Alkaline Phosphatase 79 C-Reactive Protein 10.77 H Total Protein 7.7 Albumin 4.7 08/04/25 08:05 MCV MCH MCHC RDW Plt Count MPV Immature Gran % (Auto) Neut % (Auto) Lymph % (Auto) [place] % (Auto) Eos % (Auto) Baso % (Auto) Lymph # (Auto) [place] # (Auto) Eos # (Auto) Baso # (Auto) Abs Immat Gran (auto) Absolute Neuts (auto) Absolute Nucleated RBC Nucleated RBC % (auto) ESR Anion Gap Estim Creat Clear Calc 107.6 Estimated GFR > 60 Random Glucose Lactic Acid Calcium Total Bilirubin AST ALT Alkaline Phosphatase C-Reactive Protein Total Protein Albumin Assessment and Plan (1) Cellulitis: Status: Acute Plan 55M no significant past medical history presented with right foot erythema swelling and pain Right foot cellulitis with abscess Status post bedside debridement by surgery Follow up cultures, continue IV vancomycin discontinue ceftriaxone DVT prophylaxis with Lovenox Full code reason for continued hospitalization: Ongoing IV antibiotics for significant infection for better bioavailability, possible need for further incision and drainage, awaiting cultures Quality Stroke Does the patient have a stroke diagnosis?: No VTE Prior VTE?: No VTE Risk Level:: Medical - moderate - high VTE Device Contraindication: Treatment Not Indicated VTE Drug Contraindication: N/A - Med Ordered
--- NOTE | 2025-08-04 15:44 | MHC.CM.PN ---
Addendum entered by Lis Summers 08/04/25 15:45: CM CALLED [facility], PT IS ACTIVE WITH CHARLEEN HERNANDEZ FOR PRIMARY CARE Original Note: PT REPORTS HE LIVES ALONE AND IS INDEPENDENT WITH CARE HE HAS NO SERVICES OR DME, WORKS AND DRIVES HE DOES NOT KNOW THE NAME OF HIS PCP, HE GOES TO [facility] IN [place] HCP ON FILE DCP: HOME ? [facility] PT WILL DRIVE HIMSELF HOME AT DC
[2025-08-04 15:50] VITALS: BP 132/81; PULSE 66; RESP 18; TEMP 36.9; O2SAT 95
[2025-08-04 19:26] VITALS: BP 132/74; PULSE 67; RESP 18; TEMP 36.8; O2SAT 96
--- NOTE | 2025-08-04 20:39 | HE.PHANOTE ---
RE: Alfredo Changed freq to Q8H from Q12H. New predicted trough 14.8, AUC 480. Next trough to be pulled 08/05 @1999, to be adjusted as needed.
[2025-08-05] MEDS: 0.9 % Sodium Chloride Flush 3 ML SYRINGE IVFLUSH ×2 (00:39→08:08)
[2025-08-05 03:40] VITALS: BP 136/68; PULSE 66; RESP 18; TEMP 36.3; O2SAT 95
[2025-08-05 06:16] LABS: Hematocrit 43.7 % (42.0-52.0); Hemoglobin 14.7 g/dl (14.0-18.0); Mean Corpuscular HGB Conc 33.6 g/dl (31.0-36.0); Mean Corpuscular Hemoglobin 30.9 pg (27.0-33.0); Mean Corpuscular Volume 92.0 fL (80.0-98.0); NRBC Abs Auto 0.000 X10*3/uL (0.0-0.012); NRBC Pct Auto 0.0 /100WBC (0.0-0.2); Platelet Count 253 X10*3/uL (160-400); Red Blood Count 4.75 X10*6/uL (4.60-5.80); White Blood Count 6.3 X10*3/uL (4.8-10.8)
[2025-08-05 06:31] LABS: Anion Gap 12 (12-20); Blood Urea Nitrogen 15 mg/dL (9-16); Calcium 8.9 mg/dL (8.4-10.2); Carbon Dioxide 26 mmol/L (22-29); Chloride 107 mmol/L (96-108); Creatinine Clr Calc Pharmacy 116.7; Estimated Glomerular Filt Rate > 60; Potassium 4.2 mmol/L (3.3-5.1); Sodium 141 mmol/L (135-145)
--- NOTE | 2025-08-05 07:41 | P.PNGS_ITS ---
Subjective Subjective Date of Service: 08/05/25 <Kerry Nguyen PA-C - Last Filed: 08/05/25 08:30> 08/05/25 <Yamil Mandel MD - Last Filed: 08/05/25 13:52> Interval history: Feels improved, very little foot pain and was able to ambulate without any pain. Would like to go home. <Kerry Nguyen PA-C - Last Filed: 08/05/25 08:30> Physical Exam 2 Vital Signs: Vital Signs: Last Vital Signs Temp 97.4 F 08/05/25 03:40 Pulse 66 08/05/25 03:40 Resp 18 08/05/25 03:40 BP 136/68 08/05/25 03:40 Pulse Ox 95 08/05/25 03:40 O2 Del Method Room Air 08/05/25 03:40 BMI result Body Mass Index 28.3 <Kerry Nguyen PA-C - Last Filed: 08/05/25 08:30> Const: General: comfortable, no acute distress and alert <Kerry Nguyen PA-C - Last Filed: 08/05/25 08:30> Resp: Effort & Inspection: normal respiratory effort <RADHA Christie Last Filed: 08/05/25 08:30> Skin: Other: warm and dry <Kerry Nguyen PA-C - Last Filed: 08/05/25 08:30> Extrem: Other: right foot- packing removed, open and draining area of dorsal aspect of forefoot, second bulla appearing slightly more proximal which was bluntly debrided and had small amount of purulence, scant amount of drainage overall from wounds; erythema and edema of foot improved, mild remaining distally <RADHA Christie Last Filed: 08/05/25 08:30> Objective Data Active Medications Acetaminophen (Acetaminophen 325 Mg Tablet) 650 mg PO Q6H PRN PRN Reason: Pain, Mild 1-3,fever,headache Benzocaine (Throat Lozenge, Medicated Lozenge) 1 lozenge MUCOUS MEM Q2H PRN PRN Reason: Sore Throat Last Admin: 08/04/25 00:24 Dose: 1 lozenge Documented By: HO.MCDANID Calcium Carbonate (Calcium Carbonate 750 Mg Tab.Chew) 750 mg PO Q4H PRN PRN Reason: Heartburn Enoxaparin Sodium (Enoxaparin Sodium 40 Mg/0.4 Ml Syringe) 40 mg SUBCUT Q24H [facility] Last Admin: 08/04/25 21:15 Dose: Not Given Documented By: CHICHO Non-Admin Reason: pt refussing; reports gets up and walks arnd Vancomycin HCl 1,000 mg/ (Sodium Chloride) 270 mls @ 270 mls/hr IV Q8H [facility] Last Infusion: 08/05/25 07:28 Dose: Infused Documented By: OLU Magnesium Hydroxide (Milk Of Magnesia 30 Ml Oral.Susp) 30 ml PO DAILY PRN PRN Reason: Constipation Melatonin (Melatonin 3 Mg Tablet) 6 mg PO BEDTIME PRN PRN Reason: Insomnia Last Admin: 08/04/25 22:33 Dose: 6 mg Documented By: CHICHO Multivitamins/Vitamin C (Multivitamin Tablet) 1 tab PO DAILY [facility] Last Admin: 08/04/25 09:41 Dose: 1 tab Documented By: CUCO Pharmacy Consult (Consult Rx Vancomycin Dosing) 1 each MISCELLANE DAILY PRN PRN Reason: Consult order Sodium Chloride (0.9 % Sodium Chloride Flush 3 Ml Syringe) 3 ml IVFLUSH QSHIFT [facility] Last Admin: 08/05/25 00:39 Dose: 3 ml Documented By: ISHA <Kerry Nguyen PA-C - Last Filed: 08/05/25 08:30> Labs CBC & Chem 7: 08/05/25 05:33 08/05/25 05:33 <Kerry Nguyen PA-C - Last Filed: 08/05/25 08:30> Labs: Laboratory Results - last 24 hr 08/04/25 08/04/25 08/05/25 08:05 19:53 05:33 MCV 92.0 MCH 30.9 MCHC 33.6 RDW 12.1 Plt Count 253 MPV 8.7 L Absolute Nucleated RBC 0.000 Nucleated RBC % (auto) 0.0 Anion Gap 12 Estim Creat Clear Calc 107.6 116.7 Estimated GFR > 60 > 60 Random Glucose 100 Calcium 8.9 Random Vancomycin 8.1 L <Kerry Nguyen PA-C - Last Filed: 08/05/25 08:30> Microbiology Microbiology Results: Microbiology 08/03/25 18:26 Blood Culture - Preliminary Blood - Venous No growth after 24 hours. 08/03/25 18:20 Blood Culture - Preliminary Blood - Venous No growth after 24 hours. 08/04/25 08:35 Gram Stain - Final Foot - Abscess <Kerry Nguyen PA-C - Last Filed: 08/05/25 08:30> Procedures Date of Service Date of Service: 08/05/25 <Kerry Nguyen PA-C - Last Filed: 08/05/25 08:30> 08/05/25 <Yamil Mandel MD - Last Filed: 08/05/25 13:52> Progress Note: A&P Assessment and plan (1) Cellulitis: Status: Acute <Kerry Nguyen PA-C - Last Filed: 08/05/25 08:30> Assessment and Plan: I agree with SARAH Nguyen <Yamil Mandel MD - Last Filed: 08/05/25 13:52> Assessment and Plan: Right foot cellulitis and abscess- area remains open and draining, cellulitic changes improved. Packing removed, continue daily dry sponge dressing to wound site followed by kerlix wrap. No further surgical intervention warranted, ok for dc when medically cleared on oral abx. Can follow up in the office in 1-2 weeks to ensure wound healing. Patient comfortable with plan. < Kerry Nguyen PA-C - Last Filed: 08/05/25 08:30> Time Spent With Patient Time: Total time managing care of this patient today ____ minutes. <Kerry Nguyen PA-C - Last Filed: 08/05/25 08:30> Quality Stroke Does the patient have a stroke diagnosis?: No <RADHA Christie Last Filed: 08/05/25 08:30> VTE Prior VTE?: No <Kerry Nguyen PA-C - Last Filed: 08/05/25 08:30> VTE Risk Level:: Medical - moderate - high <RADHA Christie Last Filed: 08/05/25 08:30> VTE Device Contraindication: Treatment Not Indicated <Kerry Nguyen PA-C - Last Filed: 08/05/25 08:30> VTE Drug Contraindication: N/A - Med Ordered <Kerry Nguyen PA-C - Last Filed: 08/05/25 08:30>
[2025-08-05 07:56] VITALS: BP 132/80; PULSE 65; RESP 18; TEMP 36.4; O2SAT 95
--- NOTE | 2025-08-05 09:17 | PM.DS ---
DS: Providers Provider Date of Service: 08/05/25 Date of admission: 08/03/25 20:38 Date of discharge: 08/05/25 Primary care physician: Unknown Physician Consults: 08/03/25 20:37 Consult to Infectious Diseases Routine Consulting Provider: [facility] Reason for consultation: cellulitis 08/04/25 00:02 Consult to Wound Care Routine Consulting Provider: [facility] Wound Care Management Reason for consultation: cellulitis to right foot. 08/04/25 07:31 Consult to General Surgery Routine Consulting Provider: [facility] General Surgeons Reason for consultation: foot abscess DS: Diagnosis Discharge Diagnosis (1) Cellulitis: Status: Acute DS: Summary Hospital Course Hospital Course: from initial hpi: 55-year-old male with significant past medical history presented to the hospital with a chief complaint of right foot infection for about a week. Patient mentioned that he has been having redness and erythema on the right foot which has been gradually worsening. Noted to have dark granulation tissue. And seen the physician as outpatient and was started on doxycycline which he took it for 1 day but as the redness has been progressing, presented to the ER for further evaluation. Patient denies any fevers or chills. Denies any nausea vomiting or diarrhea. Denies any insect bites. Review of all other systems is negative except mentioned above ER course: Per ER team, patient noted to have right foot open ulcer with dark granulation tissue and surrounding erythema. X-ray showed evidence of gas. Given antibiotics. hospital course: Patient was admitted for right foot cellulitis with abscess. Was treated with IV vancomycin, Underwent a bedside debridement and incision and drainage by General surgery. Prior to discharge the packing has been removed and recommendations were continue local dressing and follow up with surgery in 2 weeks. Preliminary cultures growing staph aureus sensitivity still pending. On discharge will continue Keflex and doxycycline. If MSSA doxycycline can be discontinued. Time Attestation Discharge Coordination Time (in mins): 33 Quality: Safe Use of Opioids Does Pt have an Active Cancer Diagnosis on the Problem List?: No Quality: Stroke Does the patient have a stroke diagnosis?: No Physical Exam Vital Signs: Vital Signs: Last Vital Signs Temp 97.6 F 08/05/25 07:56 Pulse 65 08/05/25 07:56 Resp 18 08/05/25 07:56 BP 132/80 08/05/25 07:56 Pulse Ox 95 08/05/25 07:56 O2 Del Method Room Air 08/05/25 07:56 BMI result Body Mass Index 28.3 Const: General: comfortable, no acute distress and alert Resp: Effort & Inspection: normal respiratory effort Skin: Other: warm and dry Extrem: Other: right foot- packing removed, open and draining area of dorsal aspect of forefoot, second bulla appearing slightly more proximal which was bluntly debrided and had small amount of purulence, scant amount of drainage overall from wounds; erythema and edema of foot improved, mild remaining distally DS: Data Data Completed and Pending Labs on day of discharge: Laboratory Results - last 24 hr 08/04/25 08/05/25 19:53 05:33 WBC 6.3 RBC 4.75 Hgb 14.7 Hct 43.7 MCV 92.0 MCH 30.9 MCHC 33.6 RDW 12.1 Plt Count 253 MPV 8.7 L Absolute Nucleated RBC 0.000 Nucleated RBC % (auto) 0.0 Sodium 141 Potassium 4.2 Chloride 107 Carbon Dioxide 26 Anion Gap 12 BUN 15 Creatinine 0.83 Estim Creat Clear Calc 116.7 Estimated GFR > 60 Random Glucose 100 Calcium 8.9 Random Vancomycin 8.1 L Preliminary micro results at discharge 08/04/25 08:35 Routine Culture - Preliminary Foot - Abscess Staphylococcus aureus 08/03/25 18:26 Blood Culture - Preliminary Blood - Venous No growth after 24 hours. 08/03/25 18:20 Blood Culture - Preliminary Blood - Venous No growth after 24 hours. Discharge Plan Discharge Anticipated Discharge Date/Time: 08/05/25 09:10 Patient Disposition: Home, Self-Care Discharge Diagnosis: abscess Referrals: Yamil Mandle MD [Physician, General Surgery] - 2 Weeks Physician,Unknown J [Primary Care Provider, Medical] - 1 Week Discharge Medications: New doxycycline hyclate 100 mg tablet 100 mg PO BID Qty: 10 0RF cephalexin 500 mg capsule 500 mg PO Q12H Qty: 10 0RF Continued multivitamin Tablet 1 tab PO DAILY Discharge Orders: Discharge Order (Routine); Ordered 08/05/25 Ordered By: Jeb Peralta Diet: Advance to usual diet Activity on Discharge: As tolerated Stand Alone Forms: Patient Portal Discharge page Print Language: Ukrainian Activity Restrictions/Additional Instructions: Dry sponge dressing to foot followed by kerlix wrap - change daily and as needed. Care Plan Goals: recovery Health Concerns: cellulitis, abscess Plan of Treatment: 5 more days doxy and keflex follow up wound cultures - if staph ends up being MSSA and not MRSA can stop doxy Assessment: see above
--- NOTE | 2025-08-05 09:37 | MHC.CM.PN ---
pt dcd home self care
== END 2025-08-05 10:50 | disposition home or self-care (01) | DRG 383 ==
LOC: HO.ED 18:44 → HO.EDOVER 20:44 → HO.S3 23:21
PROVIDERS: Physician Assistant; Admitting Provider Hospitalist; Emergency Provider Emergency Medicine; Visit Provider Internal Medicine
DX: L02.611 Cutaneous abscess of right foot (principal); L03.115 Cellulitis of right lower limb; Z79.899 Other long term (current) drug therapy
CPT/HCPCS: 36415; 73620; 73701; 80048; 80053; 80202; 82565; 83605; 85025; 85027; 85652; 86140; 87040; 87070; 87077; 87186; 87205; 99285; J0696; J3373; J3374; Q9967

== ENCOUNTER → 2025-08-03 16:24 | Outpatient (BNV) | payer BC, SELFPAY | PROVIDERS: Visit Provider Radiology Diagnostic Radiology | DX: L02.611 Cutaneous abscess of right foot (principal); L97.419 Non-pressure chronic ulcer of right heel and midfoot with unspecified severity | CPT/HCPCS: 73701 ==

== ENCOUNTER → 2025-08-03 20:38 | Outpatient (BNV) | payer BC, SELFPAY | PROVIDERS: Admitting Provider Hospitalist; Emergency Provider Emergency Medicine; Visit Provider Physician Assistant Surgical | DX: L03.115 Cellulitis of right lower limb (principal) | CPT/HCPCS: 99232; 99253; 99499 ==

== ENCOUNTER → 2025-08-03 20:38 | Outpatient (BNV) | payer BC, SELFPAY | PROVIDERS: Admitting Provider Hospitalist; Emergency Provider Emergency Medicine; Visit Provider Internal Medicine | DX: L03.115 Cellulitis of right lower limb (principal) | CPT/HCPCS: 99223; 99232 ==

== ENCOUNTER 2025-08-17 14:43 | Outpatient (AMB) | payer BC, SELFPAY ==
--- NOTE | 2025-08-17 14:53 | A.OFFVIS_ITS ---
Vital Signs 08/17/25 15:02 Height 5 ft 11 in Weight 204 lb BMI 28.4 BP 140/85 H Blood Pressure Location Lt brachial Position Sitting Pulse 80 Intake Visit Reasons: cellulitis Intake Note: Patient is seen in office for ER follow up visit, following for cellulitis of the foot. Pt c/o: here for ED follow up on infection of the right foot, started as a rash all over the body, was on prednisone, was told might be due to detergent, was itchy at the foot and was scratching and that's how it started, admits ozzing, was given antibiotics, has closed since, skin is dry has been mostirizing Client Experience Specialist Required: No Accompanied by: Self / Same As Patient Allergies amoxicillin (AMOXICILLIN) Allergy (Mild, Verified 08/17/25 14:59) RASH HPI HPI cellulitis: Details: Reports this is been improving, now closed and a small scab. Denies significant pain. Denies fevers or chills. Has been having some difficulty came the area dry as he deals with some foot swelling. But has been keeping this covered [facility] Social History Household Members: None Housing: Apartment Do you presently have visiting nurse or other home services: No Alcohol intake: current Alcohol intake frequency: a few times a week Patient Tobacco Use Status: Never used Tobacco service: No Physical Exam Vital Signs: Last Vital Signs Pulse 80 08/17/25 15:02 BP 140/85 H 08/17/25 15:02 BMI result Body Mass Index 28.4 Const General: comfortable and no acute distress Orientation/consciousness: patient oriented x3 Skin Other: Small 1 x 1 cm wound on the dorsum of the foot. Closed, no surrounding cellulitis. No fluctuance. Nontender, scant bleeding. Foot is moist Neuro General: patient oriented x3 Assessment & Plan Assessment & Plan (1) Cellulitis: Code(s): L03.90 - Cellulitis, unspecified Category: Medical Qualifiers: Site of cellulitis: extremity Site of cellulitis of extremity: lower extremity Laterality: right Qualified Code(s): L03.115 - Cellulitis of right lower limb Plan 55 year old male following up in to office for a right foot wound after being seen while admitted for cellulitis or the right foot. Patient states things are improving, ther wound is no longer draining and has scabbed over. It has reduced singificantly in size. He denies pain, fevers. Has been keeping this covered, but struggles to keep dry due to sweating. recommended changing dressings often and also leaving open to air for a few hours per day. On exam it appears to be improving, now 1x1cm. appears scabbed over with some scant bleeding when palpated. cellulitis appears to have resolved. He has completed the course of ABX. I addressed this with dural fiber, gauze and a Tegaderm. Instructed him to leave this on for 1-2 days. He is okay to shower but if it gets saturated in the shower to remove in apply dry gauze. Can continue this until no longer bleeding. We will follow up in 1-2 weeks for wound check can likely be discharged at that time if continues to improve Medications: Discontinued cephalexin Discontinued Reason: Patient Completed Course 500 mg PO Q12H 10 caps 0RF doxycycline hyclate Discontinued Reason: Patient Completed Course 100 mg PO BID 10 tabs 0RF Coding Level of Care Code New Pt Level 4 (48962) Diagnoses Cellulitis of right lower extremity L03.115 Site of cellulitis: extremity Site of cellulitis of extremity: lower extremity Laterality: right Time Spent (min) 35
[2025-08-17 15:02] VITALS: BP 140/85; PULSE 80; BMI 28.4
== END 2025-08-17 15:18 | disposition home or self-care (01) ==
LOC: HO.HGS 14:43
PROVIDERS: PCP Registered Nurse
DX: L03.115 Cellulitis of right lower limb (principal)
CPT/HCPCS: 99204

== ENCOUNTER 2025-08-30 14:31 | Outpatient (AMB) | payer BC, SELFPAY ==
--- NOTE | 2025-08-30 14:37 | MHC.OFFVIS ---
Vital Signs 08/30/25 14:41 Height 5 ft 11 in Weight 208 lb BMI 29.0 Intake Visit Reasons: cellulitis Intake Note: Patient presents for an assessment for cellulitis. Pt c/o:completed abx cephalexin/doxycycline, no complaints at this time. [place]:08/17/2025 Shree Lacey PA-C Director Of Casework Department Required: No Accompanied by: Self / Same As Patient Allergies amoxicillin (AMOXICILLIN) Allergy (Mild, Verified 08/30/25 14:42) RASH HPI HPI cellulitis: Details: doing well. States that the wound is about a quarter of the size it was lest visit. It has scabbed over. He has been keeping it open to air. Denies pain or discharge from the wound. He has no concerns [facility] Social History Household Members: None Housing: Apartment Do you presently have visiting nurse or other home services: No Alcohol intake: current Alcohol intake frequency: a few times a week Patient Tobacco Use Status: Never used Tobacco service: No Physical Exam Vital Signs: BMI result Body Mass Index 29.0 Const General: comfortable Orientation/consciousness: patient oriented x3 Neuro General: patient oriented x3 Extrem Ankle/foot/toe images:  1. small 1x1 cm scab on the dorsum of the foot. No erythema, fluid collection, nontender Assessment & Plan Assessment & Plan (1) Cellulitis: Code(s): L03.90 - Cellulitis, unspecified Category: Medical Qualifiers: Site of cellulitis: extremity Site of cellulitis of extremity: lower extremity Laterality: right Qualified Code(s): L03.115 - Cellulitis of right lower limb Plan 55 year old male with cellulitis of the dorsum of the right foot returnign [facility] office for wound check. he notes significant improvement, the wound has decreased in size, has scabbed over. No longer draining. He has not had fevers at home. On exam the wound has improved since last visit there remains a 1 cm scab over the affected area, it does not appear infected at this time. Recommened continuing to keep this open to air overnight. He should avoid picking this scab and let it fall off on its own to prevent reinfection. He agrees to this plan. No longer needing follow up, can follow up as needed with any future concerns. Coding Level of Care Code Est Pt Level 3 (41430) Diagnoses Cellulitis of right lower extremity L03.115 Site of cellulitis: extremity Site of cellulitis of extremity: lower extremity Laterality: right
[2025-08-30 14:41] VITALS: BMI 29.0
== END 2025-08-30 14:49 | disposition home or self-care (01) ==
LOC: HO.HGS 14:32
PROVIDERS: PCP Registered Nurse
DX: L03.115 Cellulitis of right lower limb (principal)
CPT/HCPCS: 99213